=== PATIENT | male | born 1980 | race Two or more races ===

== ENCOUNTER 2020-02-02 09:11 | Emergency (ER) | payer SELFPAY ==
[~2020-02-02] VITALS: Ht 188 cm; Wt 136.1 kg
[2020-02-02 09:23] VITALS: BP 125/62
== END 2020-02-02 10:25 | disposition home or self-care (01) ==
LOC: ER 09:11
DX: S96.911A Strain of unspecified muscle and tendon at ankle and foot level, right foot, initial encounter (principal); X58.XXXA Exposure to other specified factors, initial encounter; Y93.89 Activity, other specified; Y92.89 Other specified places as the place of occurrence of the external cause; Y99.8 Other external cause status
CPT/HCPCS: 73610; 73630